=== PATIENT | female | born 1980 | race Caucasian/White ===

== ENCOUNTER → 2017-09-02 | Outpatient (CLI) | payer MEDICAID ==
[~2017-09-02] MED LIST: ONDA4TAB6 PO; PROC2.5C RECTAL; subutex PO
== END ==
LOC: HPND 12:38
PROVIDERS: ATTEND Obstetrics & Gynecology
DX: O09.522 Supervision of elderly multigravida, second trimester (principal); O99.322 Drug use complicating pregnancy, second trimester; O24.112 Pre-existing type 2 diabetes mellitus, in pregnancy, second trimester
CPT/HCPCS: 76811

== ENCOUNTER 2017-09-09 16:04 | Emergency (ER) | payer MEDICAID ==
[2017-09-09 16:23] VITALS: BP 105/59; PULSE 79; RESP 20; TEMP 98.2; O2SAT 99
[2017-09-09] MEDS ORDERED: VENTAER INH (17:52)
--- NOTE | 2017-09-09 17:55 | PD ---
HPI Chief Complaint: Cold / Flu Symptoms Time Seen by Provider: 17:18 Travel History International Travel<30 days: No Contact w/Intl Traveler<30days: No Traveled to known affect area: No History of Present Illness HPI The patient was seen and examined in the presence of the nurse. This patient complains of cough. Duration is 4 days. Severity is moderate. No fever or chest pain or shortness of breath. She is a cigarette smoker. She is 20 weeks PFSH Past Medical History Anxiety: Yes Depression: Yes Diabetes: Yes (DIET CONTROL) Diminished Hearing: No Genitourinary: Yes (INCONTINENCE) Musculoskeletal: Yes (DEGENERATIVE DISK DISEASE) Reproductive: Yes (RT OVARIAN CYST, ENDOMETRIOSIS) : 5 Para: 0 Miscarriage: 5 : 0 Past Surgical History Neurologic Surgery: Yes (MEDIAL NERVE RT ARM) Social History Alcohol Use: Yes (ONCE A WEEK ) Tobacco Use: Yes (1/2 PPD) Substance Use: No Allergies-Medications (Allergen,Severity, Reaction): Coded Allergies: bee venom protein (honey bee) (Unverified Allergy, Severe, ANAPHYLACTIC, 03/30/17) amitriptyline (Unverified Adverse Reaction, Severe, "DEADLY", 03/30/17) gabapentin (Unverified Adverse Reaction, Severe, "DEADLY", 03/30/17) paroxetine (Unverified Adverse Reaction, Severe, HALLLUCINATIONS, 03/30/17 ) sertraline (Unverified Adverse Reaction, Severe, HALLLUCINATIONS, 03/30/17 ) Reported Meds & Prescriptions Reported Meds & Active Scripts Active Ventolin Hfa 18 GM Inh (Albuterol Sulfate) 90 Mcg/Act Aer 2 Puff INH Q6H PRN Proctosol Hc 2.5% (Hydrocortisone Rectal 2.5%) 2.5% Cream 1 Applic RECTAL Q4H PRN Ondansetron HCl 4 Mg Tab 4 Bottle PO Q 4H Reported [subutex] 8 PO BID Review of Systems General / Constitutional: No: Fever Cardiovascular: No: Chest Pain or Discomfort Respiratory: Positive: Cough Gastrointestinal: No: Vomiting Genitourinary: No: Frequency Physical Exam Narrative GENERAL: Well-nourished, well-developed patient. SKIN: Focused skin assessment warm/dry. HEAD: Normocephalic. EYES: No scleral icterus. No injection or drainage. NECK: Supple, trachea midline. No JVD or lymphadenopathy. CARDIOVASCULAR: Regular rate and rhythm without murmurs, gallops, or rubs. RESPIRATORY: Breath sounds equal bilaterally. No accessory muscle use. GASTROINTESTINAL: Abdomen soft, non-tender, nondistended. Gravid uterus is nontender MUSCULOSKELETAL: No cyanosis, or edema. BACK: Nontender without obvious deformity. No CVA tenderness. Data Data Last Documented VS Vital Signs Date Time Temp Pulse Resp B/P (MAP) Pulse Ox O2 Delivery O2 Flow Rate FiO2 09/09/17 16:23 98.2 79 20 105/59 (74) 99 MDM Medical Decision Making Medical Screen Exam Complete: Yes Emergency Medical Condition: Yes Medical Record Reviewed: Yes Differential Diagnosis Bronchitis, URI, pneumonia Narrative Course I have reviewed the patient's electronic medical record. Patient is clear lungs with good saturations. Presentation consistent with acute viral bronchitis I see no indication for antibiotics Prescribed an albuterol inhaler to use as needed Side effects are discussed She should stop smoking Diagnosis Primary Impression: Acute viral bronchitis Additional Impression: and not yet delivered in second trimester Additional Instructions: The patient was advised to follow up with their physician and return if they worsen. Stop smoking Give a trial of albuterol inhaler as needed Med/Other Pt SpecificInfo: Prescription(s) given Scripts Albuterol 18 GM Inh (Ventolin Hfa 18 GM Inh) 90 Mcg/Act Aer 2 PUFF INH Q6H Y for SHORTNESS OF BREATH, #1 INHALER 0 Refills Prov: Guero Sam MD 09/09/17 Disposition: 01 DISCHARGE HOME Condition: Stable Guero Sam MD Sep 09, 2017 17:55
== END 2017-09-09 19:12 | disposition home or self-care (01) ==
LOC: NEPD 16:04
DX: O26.892 Other specified pregnancy related conditions, second trimester (principal); J20.9 Acute bronchitis, unspecified; B97.89 Other viral agents as the cause of diseases classified elsewhere; O24.912 Unspecified diabetes mellitus in pregnancy, second trimester; O99.332 Smoking (tobacco) complicating pregnancy, second trimester; Z86.59 Personal history of other mental and behavioral disorders; Z87.39 Personal history of other diseases of the musculoskeletal system and connective tissue; Z87.42 Personal history of other diseases of the female genital tract; Z3A.20 20 weeks gestation of pregnancy
CPT/HCPCS: 99283